=== PATIENT | female | born 1965 | race Hispanic/Latino ===

== ENCOUNTER 2018-10-17 19:37 | Inpatient (IN) | payer SELFPAY ==
[2018-10-17] MEDS ORDERED: ASPIRIN 325 MG TABLET ONE (20:12)
[2018-10-17] MEDS ORDERED: NITROGLYCERIN 0.4 MG SL TAB SL ONE (20:12)
[2018-10-17 20:18] LABS: BASOPHILS % (AUTO) 1.1 % (0.0-5.0); EOSINOPHILS % (AUTO) 3.3 % (0.0-8.0); HEMATOCRIT 40.3 % (36-48); LYMPHOCYTES % (AUTO) 33.3 % (21.0-51.0); MEAN CORPUSCULAR HGB CONC 33.3 g/dL (32.0-36.0); MEAN CORPUSCULAR VOLUME 89.9 fL (79-99); MONOCYTES % (AUTO) 6.3 % (3.0-13.0); PLATELET COUNT (AUTO) 203 K/uL (130-400); RED BLOOD CELL COUNT(AUTO) 4.48 MIL/uL (4.00-5.50); RED CELL DISTRIBUTION WIDTH 14.1 % (11.0-15.5); WHITE BLOOD COUNT (AUTO) 6.5 K/uL (4.8-10.8)
[2018-10-17 20:28] LABS: CREATININE 0.7 mg/dL (0.5-1.5); POTASSIUM 3.9 mmol/L (3.5-5.1)
[2018-10-17 20:31] LABS: INR 0.93 (0.85-1.15); PARTIAL THROMBOPLASTIN TIME 31.3 SEC (26.3-35.5); PROTHROMBIN TIME 9.8 SEC (9.6-11.6)
[2018-10-17 20:41] LABS: ALBUMIN 3.9 g/dL (3.5-5.0); BILIRUBIN,TOTAL 0.3 mg/dL (0.2-1.0); TOTAL PROTEIN, SERUM 7.8 g/dL (6.0-8.3)
[2018-10-18 03:06] LABS: CREATINE KINASE, TOTAL 68 U/L (21-232); MYOGLOBIN 27 ng/mL (10-92); TROPONIN I < 0.04 ng/mL (0.00-0.06)
[2018-10-18 08:20] VITALS: BP 148/91
--- NOTE | 2018-10-18 09:19 | NUR ---
Admit from ER for [facility] due to c/o cp, eliezer at this time. Addendum: 10/18/18 at 0921 by ENRIQUE MARTINEZ RN RN Amended: Links added.
[2018-10-18] MEDS: ASPIRIN 325MG EC TAB 325 MG TABLET.DR PO SCH (09:40)
[2018-10-18] MEDS: METOPROLOL TARTRATE 25 MG TAB PO SCH (09:40)
[2018-10-18] MEDS ORDERED: NITROGLYCERIN 0.4 MG SL TAB SL PRN (09:45)
[2018-10-18 09:48] LABS: CREATINE KINASE, TOTAL 72 U/L (21-232); MYOGLOBIN 28 ng/mL (10-92); TROPONIN I < 0.04 ng/mL (0.00-0.06)
[2018-10-18 11:00] VITALS: BP 159/90
[2018-10-18 16:00] VITALS: BP 160/92
[2018-10-18] MEDS ORDERED: CLONIDINE HCL 0.1 MG TABLET PO PRN (18:30)
[2018-10-18] MEDS ORDERED: ACETAMINOPHEN 325 MG TAB PO PRN (18:30)
[2018-10-18 20:00] VITALS: BP 134/86
[2018-10-19] VITALS: BP 116/74
[2018-10-19 04:00] VITALS: BP 129/72
[2018-10-19 08:00] VITALS: BP 145/81
[2018-10-19] MEDS: METOPROLOL TARTRATE 25 MG TAB PO SCH (08:50)
[2018-10-19] MEDS: ASPIRIN 325MG EC TAB 325 MG TABLET.DR PO SCH (08:50)
[2018-10-19 12:00] VITALS: BP 144/83
[2018-10-19 16:00] VITALS: BP 126/72
--- NOTE | 2018-10-19 16:33 | NUR ---
INITIAL: Met with pt this afternoon to discuss dcp. Pt states that she lives w her spouse and children. Prior to admission was independent w ambulation and ADLs. Does not own any DME or receive services. Prior to admission was working @ [employer]. Pt states that she feels safe and comfortable to [place] at [place]. Will continue to follow and wait for MD recommendations. Addendum: 10/19/18 at 1635 by DANUTA ELDER CM Amended: Links added.
[2018-10-19 19:00] VITALS: BP 132/86
--- NOTE | 2018-10-19 21:05 | NUR ---
dc dcd in stable condition, v/s stable ,no c/o pain or discomfort, afebrile ,no chest pain, piv dcd aseptically right ac cath completely out,with good hemostasis, per w/c accompanied by андрей hanna Addendum: 10/19/18 at 2124 by KRISTINE QUINTANA RN RN Amended: Links added.
== END 2018-10-19 20:59 | disposition home or self-care (01) | DRG 313 ==
LOC: EDH 19:37 → OBSVTOIN 19:38 → EDHIP 19:38 → 4BH 10-18 07:12
PROVIDERS: ADMIT Internal Medicine; ATTEND Internal Medicine
DX: R07.89 Other chest pain (principal); E66.9 Obesity, unspecified; N92.6 Irregular menstruation, unspecified
CPT/HCPCS: 36415; 71045; 80053; 82550; 83874; 84484; 85025; 85610; 85730; 93005; G0378

== ENCOUNTER 2018-11-30 19:38 | Emergency (ER) | payer SELFPAY | END 2018-11-30 21:03 | disposition home or self-care (01) | LOC: EDH 19:38 | DX: S52.135A Nondisplaced fracture of neck of left radius, initial encounter for closed fracture (principal); W18.39XA Other fall on same level, initial encounter; Y93.89 Activity, other specified; Y92.89 Other specified places as the place of occurrence of the external cause; Y99.8 Other external cause status | CPT/HCPCS: 29105; 73080; 73090 ==

== ENCOUNTER 2023-10-02 08:43 | Emergency (ER) | payer OTHER, BC ==
[~2023-10-02] VITALS: Ht 165.1 cm; Wt 141.1 kg
[2023-10-02 09:17] LABS: BASOPHILS # (AUTO) 0.04 K/uL (0.00-0.20); BASOPHILS % (AUTO) 0.7 % (0.0-5.0); EOSINOPHILS # (AUTO) 0.12 K/uL (0.00-0.70); HEMATOCRIT 41.6 % (36-48); IMMATURE GRANULOCYTE ABSOLUTE 0.02 K/uL (0-1); LYMPHOCYTES # (AUTO) 1.6 K/uL (1.0-4.8); LYMPHOCYTES % (AUTO) 25.4 % (21.0-51.0); MEAN CORPUSCULAR HEMOGLOBIN 30.2 pg (27.0-33.0); MEAN CORPUSCULAR HGB CONC 33.7 g/dL (32.0-36.0); MEAN CORPUSCULAR VOLUME 89.7 fL (79-99); MONOCYTES # (AUTO) 0.4 K/uL (0.1-1.0); MONOCYTES % (AUTO) 5.7 % (3.0-13.0); NEUTROPHILS # (AUTO) 4.1 K/uL (1.8-7.7); NEUTROPHILS % (AUTO) 65.9 % (40.0-77.0); PLATELET COUNT (AUTO) 224 K/uL (130-400); RED BLOOD CELL COUNT(AUTO) 4.64 MIL/uL (4.00-5.50); RED CELL DISTRIBUTION WIDTH 13.6 % (11.0-15.5); WHITE BLOOD COUNT (AUTO) 6.1 K/uL (4.8-10.8)
[2023-10-02 09:25] LABS: ALBUMIN 3.7 g/dL (3.5-5.0); BILIRUBIN,TOTAL 0.3 mg/dL (0.2-1.0); CREATININE 0.8 mg/dL (0.5-1.5); MAGNESIUM 1.9 mg/dL (1.80-2.40); POTASSIUM 3.1 mmol/L (3.5-5.1); TOTAL PROTEIN, SERUM 8.2 g/dL (6.0-8.3)
[2023-10-02 09:39] LABS: ADD UA MICROSCOPIC NO; APPEARANCE,URINE CLEAR (CLEAR); BILIRUBIN,URINE NEGATIVE (NEGATIVE); COLOR,URINE LIGHT-YELLOW (YELLOW); GLUCOSE, URINE (UA) NEGATIVE (NEGATIVE); KETONES,URINE NEGATIVE (NEGATIVE); LEUKOCYTE ESTERASE ,URINE NEGATIVE Leu/uL (NEGATIVE); NITRATE,URINE NEGATIVE (NEGATIVE); OCCULT BLOOD,URINE NEGATIVE (NEGATIVE); PH,URINE 6.5 (5.0-8.0); PROTEIN,URINE NEGATIVE (NEGATIVE); UROBILINOGEN,URINE 0.2 mg/dL (0.2-1.0)
[2023-10-02] MEDS ORDERED: NITROGLYCERIN 1GM OINT 1 INCH/1GM TD ONE (10:00)
[2023-10-02] MEDS ORDERED: ASPIRIN 81MG CHEW TAB PO ONE (10:00)
[2023-10-02] MEDS ORDERED: PANTOPRAZOLE 40 MG/VIAL IVP ONE (10:00)
[2023-10-02] MEDS ORDERED: KCL 20 MEQ ERTAB PO ONE (10:00)
[2023-10-02 10:04] LABS: THYROID STIMULATING HORMONE 1.95 uIU/mL (0.36-3.74)
[2023-10-02] MEDS ORDERED: OMEP20TA20 PO (12:11)
[2023-10-02] MEDS ORDERED: HYOS-27 SL (12:13)
[2023-10-02] MEDS ORDERED: HYOSCYAMINE SULFATE 0.125 MG TAB.SUBL SL ONE (12:30)
[2023-10-02] MEDS ORDERED: KETOROLAC 15MG/ML VIAL (15MG/ML) IV ONE (12:30)
[2023-10-02 12:31] VITALS: BP 127/74; PULSE 77; RESP 18; O2SAT 99
== END 2023-10-02 12:31 | disposition home or self-care (01) ==
LOC: EDH 08:43
DX: R07.89 Other chest pain (principal); E66.01 Morbid (severe) obesity due to excess calories; Z68.43 Body mass index [BMI] 50.0-59.9, adult; E87.6 Hypokalemia; Z79.899 Other long term (current) drug therapy
CPT/HCPCS: 99285; 96374; 71045; 96375; 84443; 83735; 84484 ×2; 80053; 83690; 85025; 81003; 36415; 93005; C9113; J1885

== ENCOUNTER → 2025-05-05 | Outpatient (CLI) | payer OTHER ==
[~2025-05-05] MED LIST: HYOS-16 SL; OMEP20TA20 PO
--- NOTE | 2025-05-05 13:00 | HMCIMG ---
Right BREAST ULTRASOUND: Finding: Real-time examination of the both breasts demonstrates homogeneous echotexture throughout both the breasts without evidence of focal solid masses. The small cyst seen in the right breast at 11:00 measuring 0.8 x 0.4 x 0.8 cm. There is a benign-appearing right axillary lymph node measuring 1.7 x 1.0 x 1.1 cm a second lymph node measuring 1.3 x 0.7 x 1.06 cm. IMPRESSION: Right breast 11:00 there is a small cyst at 11:00 No solid hypoechoic lesion seen. CATEGORY 2: BENIGN FINDINGS Recommend monthly self breast exam as well as annual clinical examination. A negative x-ray should not delay biopsy if a dominant or clinically suspicious mass is present, since 8-10% of cancers are not identified by mammography. Dense breasts particularly, may obscure an underlying neoplasm. Some of these may be detected clinically and therefore, clinical examination is an essential part of breast evaluation.
--- NOTE | 2025-05-05 13:03 | HMCIMG ---
DIGITAL right breast DIAGNOSTIC MAMMOGRAM Technique: The digital mammographic examination of right breast in craniocaudal, mediolateral oblique views along with CAD was obtained. History: This is a 60 years year-old female 2, para2 Ab0 . Patient has no family history of breast cancer. Patient has no complaint Reference:Follow-up for prior mammogram from 03/30/2025.. Breast composition: Breast composition C: The breasts are heterogeneously dense, which may obscure small masses. Finding: The digital mammographic examination of right breast including coned-down compression view in craniocaudal and mediolateral oblique view along with CAD demonstrates nodular moderately heterogeneously dense breasts. Ultrasound demonstrate a nodular density which appears to be a cyst 11:00. There is no evidence of any dendritic mass, cluster microcalcification or architectural distortion. The retromammary fat appears to be normal. IMPRESSION: There is a concern nodular density. NO RADIOGRAPHIC EVIDENCE OF MALIGNANT CHANGES. WE WOULD RECOMMEND ANNUAL FOLLOW UP WITH TOMOSYNTHESIS UNLESS OTHERWISE CLINICALLY INDICATED. I would recommend annual bilateral breast sonogram. FINAL ASSESSMENT: ACR: BI-RAD- 2. Benign: Also a negative assessment; finding(s) benign abnormalities. Management: Routine mammography screening. Likelihood of Cancer: Essentially 0% likelihood of malignancy. NOTE: IF A WORK-UP OF THIS PATIENT LEADS TO A BIOPSY, PLEASE FORWARD A COPY OF THE PATHOLOGY REPORT TO OUR OFFICE REQUIRED BY [employer] JULY 01, 1994. A NEGATIVE MAMMOGRAM SHOULD NOT PRECLUDE BIOPSY OF A CLINICALLY PALPABLE SUSPICIOUS MASS, 10% OF BREAST CANCERS ARE MAMMOGRAPHICALLY OCCULT. THIS MAMMOGRAPHY FACILITY IS FULLY ACCREDITED BY THE FOOD AND DRUG ADMINISTRATION (FDA). THANK YOU FOR THIS REFERRAL.
== END | disposition home or self-care (01) ==
LOC: RAH 08:05
PROVIDERS: ATTEND Internal Medicine
DX: N60.01 Solitary cyst of right breast (principal); R92.8 Other abnormal and inconclusive findings on diagnostic imaging of breast; R92.331 Mammographic heterogeneous density, right breast
CPT/HCPCS: 76641; 77065